=== PATIENT | female | born 1950 | race Caucasian/White ===

== ENCOUNTER → 2016-10-28 | Outpatient (CLI) | payer BC, OTHER ==
[~2016-10-28] VITALS: Ht 170.2 cm; Wt 93.0 kg
[~2016-10-28] MED LIST: CARDIZEM CD120 MG PO; LISINOPRIL20 MG PO
--- NOTE | ~2016-10-28 | CATHLAB ---
[facility] [address] [place] [address] INVASIVE PROCEDURE REPORT Name: BITA RAMIREZ [id number] Admission: 10/28/16 Attend Phys: Raheel Choi Discharge: Date of : 52 Date of Service: 11/07/16 1313 Report #: [id number] THIS REPORT FOR: //name// APPROVED REPORT Patient Details Patient Status: Out-Patient Room #: The patient is a 65 year-old female Event Personnel Raheel Larsen, Nps Anju Whitmore, FOSTER Quispe, FOSTER Titus, RTR David Mueller, cardiovascular technologist Jacki Flores, cardiovascular technologist Fadi Campos RN Procedures Performed Left Heart Catheterization, selective left and right coronary angiography, supervision of conscious sedation Indication Chest pain Risk Factors Chronic Lung Disease, Hypertension Procedure Narrative The patient was brought electively to the Cardiac Catheterization Laboratory and was prepped and draped in a sterile manner. The right femoral was infiltrated with 1% Lidocaine subcutaneous anesthesia. A 4 [place] sheath was inserted into the right femoral artery. Coronary angiography was performed using coronary diagnostic catheters. The right coronary system was accessed and visualized with a Diagnostic catheter. The left coronary system was accessed and visualized with a Diagnostic catheter. Hemostasis was obtained with manual pressure following sheath removal without any complications. The patient tolerated the procedure well and there were no complications associated with the procedure. There was no hematoma. Intraoperative Conscious Sedation Sedation start time: 11:26 Case end Time: 11:35 Versed 2.0 mg [facility] [address] [address] INVASIVE PROCEDURE REPORT Name: BITA RAMIREZ Room #: REG [facility]#: [id number] Admission: 10/28/16 Attend Phys: Raheel Choi Discharge: Date of : 52 Date of Service: 11/07/16 1313 Report #: [id number] Fluoro Time: 3.1 minutes Dose: DAP 2201.4 cGycm2 281.3 mGy Contrast Type and Amount: 75 ml Omnipaque [place] Artery Percent Stenosis Essentially normal coronary arteries Diagnostic Cath Left Main Normal or drink caliber bifurcates left anterior descending left circumflex free of high-grade disease LAD Moderate caliber type III vessel which has a tortuous course in the anterior interventricular sulcus without significant lesions noted Circumflex Moderate caliber nondominant vessel that significant obstructive lesions noted Right Coronary Normal origin and caliber dominant vessel giving rise to posterior descending artery free of high-grade disease no significant flow-limiting lesions are noted Left Ventriculography Left Ventriculography was not performed. Hemodynamics The aortic pressure is 138 mmHg with a mean of 47 mmHg. Conclusion 1. Essentially normal coronary arteries 2. Normal systemic hemodynamics Recommendations Cardiac Risk Reduction Program <ELECTRONICALLY SIGNED> By: Raheel Larsen MD 11/07/16 1313 1313 1313 Raheel Larsen MD /INF
[2016-10-28 08:06] VITALS: BP 122/70
[2016-10-28 10:04] LABS: HEMATOCRIT 38.9 % (37.0-47.0); HEMOGLOBIN 12.9 gm/dL (12.0-15.0); MCH 29.1 pg (26.0-34.0); MCHC 33.3 g/dL (28.0-37.0); MCV 87.3 fL (80.0-100.0); RBC 4.45 mil/uL (4.20-5.00); RDW 13.8 % (10.5-14.5); WBC 7.3 thou/uL (4.0-11.0)
[2016-10-28 10:24] LABS: CALCIUM 9.1 mg/dL (8.5-10.1); CREATININE 0.6 mg/dL (0.6-1.0)
== END ==
LOC: CATH 07:29
PROVIDERS: Internal Medicine
DX: R07.9 Chest pain, unspecified (principal); I10 Essential (primary) hypertension; J98.4 Other disorders of lung